=== PATIENT | male | born 1975 ===

== ENCOUNTER 2017-03-31 00:21 | Observation (INO) | payer OTHER ==
[2017-03-31 00:42] LABS: BASO % 0.3 % (0.0-2.0); EOS # 0.1 K/uL (0.0-0.7); EOS % 1.2 % (0.0-4.0); HEMATOCRIT 46.2 % (35.0-51.0); LYMPH # 4.1 K/uL (1.0-4.3); LYMPH % 45.4 % (20.0-40.0); MEAN CELL VOLUME 87.5 fL (80.0-94.0); MEAN CORPUSCULAR HEMOGLOBIN 29.2 pg (27.0-31.0); MEAN CORPUSCULAR HGB CONC 33.4 g/dL (33.0-37.0); MEAN PLATELET VOLUME 8.2 fL (7.2-11.7); MONO # 0.5 K/uL (0.0-0.8); MONO % 5.8 % (0.0-10.0); RED CELL DISTRIBUTION WIDTH 13.6 % (11.5-14.5)
[2017-03-31 00:56] LABS: RBC URINE 1 /hpf (0-3); URINE BILIRUBIN NEGATIVE (NEGATIVE); URINE BLOOD NEGATIVE (NEGATIVE); URINE COLOR Yellow (YELLOW); URINE GLUCOSE (UA) NORMAL (Normal); URINE KETONE NEGATIVE (NEGATIVE); URINE LEUKOCYTE ESTERASE TRACE Leu/uL (Negative); URINE PROTEIN 1+ mg/dL (NEGATIVE); URINE UROBILINOGEN NORMAL mg/dL (0.2-1.0); WBC URINE 3 /hpf (0-5)
[2017-03-31 00:56] LABS: ALB/GLOB RATIO 1.2 (1.0-2.1); ALKALINE PHOSPHATASE 85 U/L (38-126); ALT/SGPT 59 U/L (21-72); AST/SGOT 24 U/L (17-59); BILIRUBIN,TOTAL 0.4 mg/dL (0.2-1.3); BLOOD UREA NITROGEN 10 mg/dL (9-20); CALCIUM 8.6 mg/dl (8.6-10.4); CARBON DIOXIDE 27 mmol/L (22-30); CHLORIDE 103 mmol/L (98-107); GFR AFRICAN-AMERICAN > 60; GLUCOSE,RANDOM 109 mg/dL (75-110); POTASSIUM 3.7 mmol/L (3.6-5.2); SODIUM 140 mmol/L (132-148); TOTAL PROTEIN 7.9 g/dL (6.3-8.3)
--- NOTE | 2017-03-31 01:32 | CT ---
EXAM: CT Head Without Intravenous Contrast EXAM DATE/TIME: 03/31/2017 12:30 AM CLINICAL HISTORY: 41 years old, male; Pain; Other: On set seizure; Additional info: New onset seizure TECHNIQUE: Axial computed tomography images of the head/brain without intravenous contrast. All CT scans at this facility use one or more dose reduction techniques, viz.: automated exposure control; ma/kV adjustment per patient size (including targeted exams where dose is matched to indication; i.e. head); or iterative reconstruction technique. Coronal and sagittal reformatted images were created and reviewed. COMPARISON: There are no prior studies for comparison. FINDINGS: Brain: Ventricles are normal in size and configuration. There is no midline shift. There are no intra-axial or extra-axial mass lesions or areas of hemorrhage. There are no abnormal fluid collections. La-white differentiation is maintained. Ventricles: See above. Bones: Cranial vault is intact. Soft tissues: unremarkable Sinuses: There is no acute sinusitis. Ears and mastoids: Middle ears and mastoids are unremarkable Orbits: Orbital contents are unremarkable. IMPRESSION: No acute intracranial abnormality
--- NOTE | 2017-03-31 02:32 | C.PDOC ---
History Of Present Illness 41 year old male presents to the ER after witnessed patient have a seizure for approximately 3 minutes. Patient states the last thing he remembers for seizing was a sudden sharp pain on the right side of his body. As per , patient was sitting in his chair when he started seizing and his eyes started to roll back. Patient had positive urinary incontinence and when he awoke he was covered in perspiration. Denies Hx of seizures or other complaints at this time. Time Seen by Provider: 03/31/17 00:30 Chief Complaint (Nursing): Seizure History Per: Patient History/Exam Limitations: no limitations Recent Seizure Activity Began: Just Before Arrival Number Of Seizures: One Length Of Seizures (Duration): Minutes (3) Quality Of Seizure: Generalized Precipitating Factor(s): None Associated Symptoms: Incontinence Of Urine Post-ictal Period: No Recent travel outside of the [place]: No Past Medical History Reviewed: Historical Data, Nursing Documentation, Vital Signs Vital Signs: Last Vital Signs Temp 97.7 F 03/31/17 03:59 Pulse 81 03/31/17 03:59 Resp 20 03/31/17 03:59 BP 122/70 03/31/17 03:59 Pulse Ox 99 03/31/17 03:59 - Medical History PMH: No Chronic Diseases Surgical History: No Surg Hx Family History: States: Unknown Family Hx - Social History Hx Alcohol Use: Yes Hx Substance Use: No - Immunization History Hx Tetanus Toxoid Vaccination: No Hx Influenza Vaccination: No Hx Pneumococcal Vaccination: No Review Of Systems Constitutional: Negative for: Fever, Chills Gastrointestinal: Negative for: Nausea, Vomiting Genitourinary: Positive for: Incontinence (urinary) Neurological: Positive for: Seizures. Negative for: Headache Physical Exam - Physical Exam Appears: Non-toxic, No Acute Distress Skin: Normal Color, Warm, Dry Head: Atraumatic, Normacephalic Eye(s): bilateral: Normal Inspection, PERRL, EOMI Oral Mucosa: Moist Tongue: Normal Appearing, No Bite Neck: Normal, No Midline Cervical Tenderness, No Paracervical Tenderness, Supple Chest: Symmetrical, No Tenderness Cardiovascular: Rhythm Regular Respiratory: Normal Breath Sounds, No Rales, No Rhonchi, No Wheezing Gastrointestinal/Abdominal: Soft, No Tenderness Neurological/Psych: Oriented x3, Normal Speech ED Course And Treatment - Laboratory Results Result Diagrams: 03/31/17 00:36 03/31/17 00:36 ECG: Interpreted By Me, Viewed By Me ECG Rhythm: Sinus Rhythm ECG Interpretation: Normal Interpretation Of ECG: norm axis and rhythm Rate From EC O2 Sat by Pulse Oximetry: 100 (room air) Pulse Ox Interpretation: Normal Progress Note: CT head, EKG, blood work, and urinalysis ordered. Discussed with Dr. Sosa who requests to have me speak to neurologist glue bone crusher. Discussed with Dr. Loaiza, neurologist glue bone crusher, who states not to give patient any medication and to admits patient as he need an EEG and further study. Disposition - Disposition Disposition: HOSPITALIZED Disposition Time: 01:30 Condition: STABLE - Clinical Impression Clinical Impression: New onset seizure - Scribe Statement The provider has reviewed the documentation as recorded by the Scribe Varghese Ross All medical record entries made by the Scribe were at my direction and personally dictated by me. I have reviewed the chart and agree that the record accurately reflects my personal performance of the history, physical exam, medical decision making, and the department course for this patient. I have also personally directed, reviewed, and agree with the discharge instructions and disposition.
--- NOTE | 2017-03-31 06:55 | CP.PCM.CON ---
History of Present Illness - History of Present Illness History of Present Illness: consult dictatated NEW ONSET OF Sz NO AED IS NEEDED NOW MRI/EEG IF STABLE X24 HRS CAN BE D/C HME AND FOLLOW UP AN OP Past Patient History - Infectious Disease Hx of Infectious Diseases: None - Past Medical History & Family History Past Medical History?: No - Past Social History Smoking Status: Light Smoker < 10 Cigarettes Daily - PULMONARY Hx Respiratory Disorders: No - NEUROLOGICAL Hx Neurological Disorder: No - HEENT Hx HEENT Problems: No - RENAL Hx Chronic Kidney Disease: No - ENDOCRINE/METABOLIC Hx Endocrine Disorders: No - HEMATOLOGICAL/ONCOLOGICAL Hx Blood Disorders: No - INTEGUMENTARY Hx Dermatological Problems: No - MUSCULOSKELETAL/RHEUMATOLOGICAL Hx Musculoskeletal Disorders: No Hx Falls: No - GASTROINTESTINAL Hx Gastrointestinal Disorders: No - GENITOURINARY/GYNECOLOGICAL Hx Genitourinary Disorders: No - PSYCHIATRIC Hx Substance Use: No - SURGICAL HISTORY Hx Surgeries: No - ANESTHESIA Hx Anesthesia: No Meds Allergies/Adverse Reactions: Allergies Allergy/AdvReac Type Severity Reaction Status Date / Time No Known Allergies Allergy Unverified 03/31/17 00:24 Results - Vital Signs Recent Vital Signs: Last Vital Signs Temp 97.7 F 03/31/17 03:59 Pulse 81 03/31/17 03:59 Resp 20 03/31/17 03:59 BP 122/70 03/31/17 03:59 Pulse Ox 100 03/31/17 06:15 - Labs Result Diagrams: 03/31/17 00:36 03/31/17 00:36 Labs: Laboratory Results - last 24 hr 03/31/17 03/31/17 03/31/17 00:36 00:36 00:50 WBC 9.0 RBC 5.29 Hgb 15.4 Hct 46.2 MCV 87.5 MCH 29.2 MCHC 33.4 RDW 13.6 Plt Count 265 MPV 8.2 Neut % (Auto) 47.3 L Lymph % (Auto) 45.4 H [place] % (Auto) 5.8 Eos % (Auto) 1.2 Baso % (Auto) 0.3 Neut # 4.2 Lymph # 4.1 [place] # 0.5 Eos # 0.1 Baso # 0.0 Sodium 140 Potassium 3.7 Chloride 103 Carbon Dioxide 27 Anion Gap 14 BUN 10 Creatinine 1.0 Est GFR ( Amer) > 60 Est GFR (Non-Af Amer) > 60 Random Glucose 109 Calcium 8.6 Magnesium 2.0 Total Bilirubin 0.4 AST 24 ALT 59 Alkaline Phosphatase 85 Troponin I < 0.0120 Total Protein 7.9 Albumin 4.4 Globulin 3.6 Albumin/Globulin Ratio 1.2 Urine Color Yellow Urine Clarity Clear Urine pH 5.0 Ur Specific [place] 1.013 Urine Protein 1+ H Urine Glucose (UA) Normal Urine Ketones Negative Urine Blood Negative Urine Nitrate Negative Urine Bilirubin Negative Urine Urobilinogen Normal Ur Leukocyte Esterase Trace Urine WBC (Auto) 3 Urine RBC (Auto) 1 Ur Squamous Epith Cells < 1 Urine Opiates Screen Urine Methadone Screen Ur Barbiturates Screen Ur Phencyclidine Scrn Ur Amphetamines Screen U Benzodiazepines Scrn U Oth Cocaine Metabols U Cannabinoids Screen 03/31/17 01:49 WBC RBC Hgb Hct MCV MCH MCHC RDW Plt Count MPV Neut % (Auto) Lymph % (Auto) [place] % (Auto) Eos % (Auto) Baso % (Auto) Neut # Lymph # [place] # Eos # Baso # Sodium Potassium Chloride Carbon Dioxide Anion Gap BUN Creatinine Est GFR ( Amer) Est GFR (Non-Af Amer) Random Glucose Calcium Magnesium Total Bilirubin AST ALT Alkaline Phosphatase Troponin I Total Protein Albumin Globulin Albumin/Globulin Ratio Urine Color Urine Clarity Urine pH Ur Specific [place] Urine Protein Urine Glucose (UA) Urine Ketones Urine Blood Urine Nitrate Urine Bilirubin Urine Urobilinogen Ur Leukocyte Esterase Urine WBC (Auto) Urine RBC (Auto) Ur Squamous Epith Cells Urine Opiates Screen Negative Urine Methadone Screen Negative Ur Barbiturates Screen Negative Ur Phencyclidine Scrn Negative Ur Amphetamines Screen Negative U Benzodiazepines Scrn Negative U Oth Cocaine Metabols Negative U Cannabinoids Screen Negative
[2017-03-31 08:16] LABS: FREE T4 1.16 ng/dL (0.78-2.19)
[2017-03-31 08:30] LABS: THYROID STIMULATING HORMONE 2.65 mIU/L (0.46-4.68)
--- NOTE | 2017-03-31 10:11 | CON ---
DATE: 03/31/2017 NEUROLOGICAL PROBLEM: New onset of seizures. CHIEF COMPLAINT: The patient was brought in to [facility] with history of seizures, been witnessed by his . From a neurologic point of view, I was called in to evaluate him for further management. HISTORY OF PRESENT ILLNESS: Mr. Mariluz Hasknis is a 41-year-old right-handed [place] male, usual state of health. Last night around 11:30 p.m. in the bed, he woke up, he felt tightness and pain allover his right side of the chest, which was radiating to his back. The same symptom he supposed to get up by himself to drink water; however, he felt uneasiness, felt like passing out and tried to woke his . During the process, he fell backwards and witnessed tonic-clonic activities. He was placed on the ground. This episode associated with urinary incontinence as well. The whole episode lasted for about 2 to 3 minutes and he got up himself. No bitten tongue. No similar episodes happened in the past. No post event confusion or weakness noted by his as well as by himself. He denies headache, no visual or bulbar dysfunction. PAST MEDICAL HISTORY: Unremarkable. PERSONAL HISTORY: He smokes less than a pack a day. Occasional alcohol use. No substance abuse. REVIEW OF SYSTEMS: A 12-point systems had been reviewed. From neuro, new onset of seizures. MEDICATIONS: None. PHYSICAL EXAMINATION: VITAL SIGNS: Blood pressure 122/70, mean arterial pressure of 87, respiratory rate 16, temperature afebrile. NECK: Supple. No carotid bruits. HEART: Sounds regular. CHEST: Fair air entry. EXTREMITIES: No edema in leg. NEUROLOGICAL EXAMINATION: Mental status examination, he is awake, alert, oriented to person, place and time. No retrograde or antegrade amnesia. No confusion. No confabulation. Cranial nerve examination: Visual field intact. Pupils reactive to light. Extraocular movement normal. No nystagmus. No facial sensory deficit. No facial asymmetry. Hearing is normal. Tongue is midline. Good gag. Motor examination: On outstretched hand with eyes closed, no drift noted. Power is symmetrical on either side. Deep tendon reflexes biceps, brachialis, triceps 2+, both knees are 3+, both ankles are 1+. Plantars are downgoing. Sensory examination grossly intact. No cortical sensory loss. Coordination: [id number] test is intact. Gait is deferred at this time. WORKUP: CT of the head is reviewed. No acute pathology is noted. Blood workup: WBC 9.0, hemoglobin 15.4, hematocrit 46.2, platelet 265. Sodium 140, potassium 3.7, chloride 103, bicarbonate 27, BUN 10, creatinine 1.0, GFR more than 60, magnesium 2.0, calcium 8.6. Urinalysis shows 1+ proteinuria. Urine tox screen is negative. EKG, normal sinus rhythm. CONCLUSION: Mr. Mariluz Haskins has been presenting with the new onset of generalized tonic-clonic activity, tonic-clonic seizures. Which is unprovoked. There has no triggers been noticed from his history. The examination does not show any long tract sign at present. RECOMMENDATIONS: 1. MRI of the brain as per the seizure protocol, attention at mesial temporal lobe and volumetric analysis of hippocampus. 2. EEG. 3. Blood workup as per the order. 4. The patient should have ambulatory video electroencephalogram, which can be done as outpatient. 5. If cardiac nieves is stable, the patient is stable for next 24-hour period, he can be discharged and he should have followup visit with me as outpatient. 6. Seizure hygiene had been discussed. Proper sleep, no stimulant before going sleep and do not deprive his sleep pattern. The patient's condition has been discussed with his as well. Dariusz Loaiza MD
[2017-03-31] MEDS ORDERED: Gadodiamide 287 MG/ML VIAL (15ML) IV ONE (10:38)
--- NOTE | 2017-03-31 13:23 | MRI ---
PROCEDURE: MRI BRAIN WITH AND WITHOUT CONTRAST HISTORY: Seizure protocol COMPARISON: Comparison made with CT scan brain dated 03/31/2017 TECHNIQUE: Multiplanar, multisequence MR images of the brain were obtained with and without intravenous contrast enhancement. Approximately 13 cc of Omniscan contrast material injected for this procedure. FINDINGS: HEMORRHAGE: No acute parenchymal, subarachnoid or extra-axial hemorrhage. . No evidence of hemosiderin deposition identified on gradient echo weighted sequence. DWI: No evidence of an acute or early subacute infarction seen on diffusion imaging. BRAIN PARENCHYMA: There is a small nonenhancing elliptical shaped focal area of increased T2 signal seen in the left posterior centrum semiovale nonspecific. Findings could be represent a small chronic ischemic focus, sequela of migraine headache, old trauma, post infectious/ inflammatory etiology. The possibility of a demyelinating disease process would be less likely in the absence of a pertinent clinical history. Clinical correlation recommended. No additional focal areas of abnormal signal seen within the substance of the brain. No evidence to suggest mesial temporal sclerosis. No enhancing parenchymal nor extra-axial masses or collections. No evidence of abnormal meningeal enhancement. Ventricular and sulcal size are within range of normal for this patient's stated age. ENHANCEMENT: As above. VENTRICLES: No obstructive hydrocephalus. CRANIUM: There are no gross calvarial abnormalities ORBITS: Ho orbits and contents grossly unremarkable. PARANASAL SINUSES/MASTOIDS: Cl the visualized paranasal sinuses well-developed and currently well-aerated. VASCULAR SYSTEM: Visualized major vascular flow voids at skull base are patent. OTHER FINDINGS: None . IMPRESSION: No evidence of acute intracranial hemorrhage or infarct. There is a small elliptical shaped nonenhancing area of increased T2 signal left posterior centrum semiovale of uncertain etiology. Rule out sequela of old ischemia,, migraine headaches, old trauma or post infectious/ inflammatory etiologies. A demyelinating disease process would be less likely in the absence of a pertinent clinical history however not completely excluded. .
--- NOTE | 2017-03-31 13:50 | CP.PCM.HP ---
History of Present Illness - History of Present Illness History of Present Illness: 41 year old male presents to the ER after witnessed patient have a seizure for approximately 3 minutes. Patient states the last thing he remembers for seizing was a sudden sharp pain on the right side of his body. As per , patient was sitting in his chair when he started seizing and his eyes started to roll back. Patient had positive urinary incontinence and when he awoke he was covered in perspiration. Denies Hx of seizures or other complaints at this time. CT HEAD NEG Present on Admission - Present on Admission Any Indicators Present on Admission: No Review of Systems - Constitutional Constitutional: Fatigue, Headache, Lethargy, Malaise. absent: As Per HPI, Anorexia, Chills, Daytime Sleepiness, Excessive Sweating, Fever, Frequent Falls , Increased Appetite, Night Sweats, Snoring, Sleep Apnea, Weight Gain, Weight Loss, Weakness, Other - EENT Eyes: absent: As Per HPI, Blind Spots, Blurred Vision, Change in Vision, Decreased Night Vision, Diplopia, Discharge, Dry Eye, Exophthalmos, Floaters, Irritation, Itchy Eyes, Loss of Peripheral Vision, Pain, Photophobia, Requires Corrective Lenses, Sees Flashes, Spots in Vision, Tunnel Vision, Other Visual Disturbances, Loss of Vision, Other Ears: absent: As Per HPI, Decreased Hearing, Ear Discharge, Ear Pain, Tinnitus, Abnormal Hearing, Disequilibrium, Dizziness, Other Nose/Mouth/Throat: absent: As Per HPI, Epistaxis, Nasal Congestion, Nasal Discharge, Nasal Obstruction, Nasal Trauma, Nose Pain, Post Nasal Drip, Sinus Pain, Sinus Pressure, Bleeding Gums, Change in Voice, Dental Pain, Dry Mouth, Dysphagia, Halitosis, Hoarsness, Lip Swelling, Mouth Lesions, Mouth Pain, Odynophagia, Sore Throat, Throat Swelling, Tongue Swelling, Facial Pain, Neck Pain, Neck Mass, Other - Cardiovascular Cardiovascular: absent: As Per HPI, Acrocyanosis, Chest Pain, Chest Pain at Rest , Chest Pain with Activity, Claudication, Diaphoresis, Dyspnea, Dyspnea on Exertion, Edema, Irregular Heart Rhythm, Pain Radiating to Arm/Neck/Jaw, Leg Edema, Leg Ulcers, Lightheadedness, Orthopnea, Palpitations, Paroxysmal Nocturnal Dyspnea, Pedal Edema, Radiating Pain, Rapid Heart Rate, Slow Heart Rate, Syncope, Other - Respiratory Respiratory: absent: As Per HPI, Cough, Dyspnea, Hemoptysis, Dyspnea on Exertion , Wheezing, Snoring, Stridor, Pain on Inspiration, Chest Congestion, Excessive Mucous Production, Change in Mucous Color, Pain with Coughing, Other - Gastrointestinal Gastrointestinal: absent: As Per HPI, Abdominal Pain, Belching, Bloating, Change in Bowel Habits, Change in Stool Character, Coffee Ground Emesis, Constipation, Cramping, Diarrhea, Dyspepsia, Dysphagia, Early Satiety, Excessive Flatus, Fecal Incontinence, Heartburn, Hematemesis, Hematochezia, Loose Stools, Melena, Nausea, Odynophagia, Temesmus, Vomiting, Other - Genitourinary Genitourinary: absent: As Per HPI, Change in Urinary Stream, Difficulty Urinating, Dysuria, Flank Pain, Hematuria, Pyuria, Nocturia, Urinary Incontinence, Urinary Frequency, Urinary Hesitance, Urinary Urgency, Voiding Freq/Small Amts, Freq UTI, Hx Renal/Bladder Calculi, Hx /Renal Surgery, Bladder Distension, Other - Musculoskeletal Musculoskeletal: Back Pain, Muscle Cramps, Muscle Weakness, Myalgias. absent: As Per HPI, Abnormal Gait, Arthralgias, Atrophy, Deformity, Joint Swelling, Limited Range of Motion, Loss of Height, Neck Pain, Numbness, Radiating Pain into Limb, Stiffness, Tingling, Other - Integumentary Integumentary: absent: As Per HPI, Acne, Alopecia, Bleeding Lesions, Change in Hair, Change in Nails, Change in Pigmentation, Changing Lesions, Dry Skin, Erythema, Furuncle, Hirsutism, Lesions, New Lesions, Non-Healing Lesions, Photosensitivity, Pruritus, Rash, Skin Pain, Skin Ulcer, Sores, Striae, Swelling , Unusual Bruising, Wounds, Jaundice, Other - Neurological Neurological: Convulsions, Dizziness, Syncope, Tingling. absent: As Per HPI, Abnormal Gait, Abnormal Hearing, Abnormal Movements, Abnormal Speech, Behavioral Changes, Burning Sensations, Confusion, Disequilibrium, Numbness, Focal Weakness, Frequent Falls, Headaches, Lack of Coordination, Loss of Vision , Memory Loss, Paresthesias, Radicular Pain, Restless Legs, Sensory Deficit, Tremor, Vertigo, Weakness, Other Visual Disturbances, Other - Psychiatric Psychiatric: absent: As Per HPI, Abnormal Sleep Pattern, Anhedonia, Anxiety, Auditory Hallucinations, Behavioral Changes, Change in Appetite, Change in Libido, Confusion, Depression, Difficulty Concentrating, Hallucinations, Homicidal Ideation, Hopelessness, Irritability, Memory Loss, Mood Swings, Panic Attacks, Paranoia, Suicidal Ideation, Visual Hallucinations, Tactile Hallucinations, Other - Endocrine Endocrine: absent: As Per HPI, Change in Body Appearance, Change in Libido, Cold Intolorance, Deepening of Voice, Excessive Sweating, Fatigue, Flushing, Heat Intolorance, Increase in Ring/Shoe/Hat Size, Palpitations, Polydipsia, Polyphagia, Polyuria, Other - Hematologic/Lymphatic Hematologic: absent: As Per HPI, Easy Bleeding, Easy Bruising, Lymphadenopathy, Other Past Patient History - Infectious Disease Hx of Infectious Diseases: None - Past Medical History & Family History Past Medical History?: No - Past Social History Smoking Status: Light Smoker < 10 Cigarettes Daily - PULMONARY Hx Respiratory Disorders: No - NEUROLOGICAL Hx Neurological Disorder: No - HEENT Hx HEENT Problems: No - RENAL Hx Chronic Kidney Disease: No - ENDOCRINE/METABOLIC Hx Endocrine Disorders: No - HEMATOLOGICAL/ONCOLOGICAL Hx Blood Disorders: No - INTEGUMENTARY Hx Dermatological Problems: No - MUSCULOSKELETAL/RHEUMATOLOGICAL Hx Musculoskeletal Disorders: No Hx Falls: No - GASTROINTESTINAL Hx Gastrointestinal Disorders: No - GENITOURINARY/GYNECOLOGICAL Hx Genitourinary Disorders: No - PSYCHIATRIC Hx Substance Use: No - SURGICAL HISTORY Hx Surgeries: No - ANESTHESIA Hx Anesthesia: No Meds Allergies/Adverse Reactions: Allergies Allergy/AdvReac Type Severity Reaction Status Date / Time No Known Allergies Allergy Unverified 03/31/17 00:24 Physical Exam - Head Exam Head Exam: ATRAUMATIC - Eye Exam Eye Exam: EOMI, Normal appearance, PERRL - ENT Exam ENT Exam: Mucous Membranes Moist, Normal Exam - Neck Exam Neck exam: Positive for: Normal Inspection - Respiratory Exam Respiratory Exam: Clear to Auscultation Bilateral, NORMAL BREATHING PATTERN - Cardiovascular Exam Cardiovascular Exam: REGULAR RHYTHM, +S1, +S2 - GI/Abdominal Exam GI & Abdominal Exam: Normal Bowel Sounds, Soft. absent: Tenderness - Neurological Exam Neurological exam: Alert, CN II-XII Intact, Normal Gait, Oriented x3, Reflexes Normal - Psychiatric Exam Psychiatric exam: Normal Affect, Normal Mood Results - Vital Signs Recent Vital Signs: Last Vital Signs Temp 98.0 F 03/31/17 08:02 Pulse 70 03/31/17 08:02 Resp 20 03/31/17 08:02 BP 112/74 03/31/17 08:02 Pulse Ox 100 03/31/17 08:02 - Labs Result Diagrams: 03/31/17 00:36 03/31/17 00:36 Labs: Laboratory Results - last 24 hr 03/31/17 03/31/17 03/31/17 00:24 00:36 00:36 WBC 9.0 RBC 5.29 Hgb 15.4 Hct 46.2 MCV 87.5 MCH 29.2 MCHC 33.4 RDW 13.6 Plt Count 265 MPV 8.2 Neut % (Auto) 47.3 L Lymph % (Auto) 45.4 H [place] % (Auto) 5.8 Eos % (Auto) 1.2 Baso % (Auto) 0.3 Neut # 4.2 Lymph # 4.1 [place] # 0.5 Eos # 0.1 Baso # 0.0 Sodium 140 Potassium 3.7 Chloride 103 Carbon Dioxide 27 Anion Gap 14 BUN 10 Creatinine 1.0 Est GFR ( Amer) > 60 Est GFR (Non-Af Amer) > 60 POC Glucose (mg/dL) 97 Random Glucose 109 Calcium 8.6 Magnesium 2.0 Total Bilirubin 0.4 AST 24 ALT 59 Alkaline Phosphatase 85 Troponin I < 0.0120 Total Protein 7.9 Albumin 4.4 Globulin 3.6 Albumin/Globulin Ratio 1.2 Free T4 TSH 3rd Generation Prolactin Urine Color Urine Clarity Urine pH Ur Specific [place] Urine Protein Urine Glucose (UA) Urine Ketones Urine Blood Urine Nitrate Urine Bilirubin Urine Urobilinogen Ur Leukocyte Esterase Urine WBC (Auto) Urine RBC (Auto) Ur Squamous Epith Cells Urine Opiates Screen Urine Methadone Screen Ur Barbiturates Screen Ur Phencyclidine Scrn Ur Amphetamines Screen U Benzodiazepines Scrn U Oth Cocaine Metabols U Cannabinoids Screen 03/31/17 03/31/17 03/31/17 00:50 01:49 07:18 WBC RBC Hgb Hct MCV MCH MCHC RDW Plt Count MPV Neut % (Auto) Lymph % (Auto) [place] % (Auto) Eos % (Auto) Baso % (Auto) Neut # Lymph # [place] # Eos # Baso # Sodium Potassium Chloride Carbon Dioxide Anion Gap BUN Creatinine Est GFR ( Amer) Est GFR (Non-Af Amer) POC Glucose (mg/dL) Random Glucose Calcium Magnesium Total Bilirubin AST ALT Alkaline Phosphatase Troponin I Total Protein Albumin Globulin Albumin/Globulin Ratio Free T4 1.16 TSH 3rd Generation 2.65 Prolactin Urine Color Yellow Urine Clarity Clear Urine pH 5.0 Ur Specific [place] 1.013 Urine Protein 1+ H Urine Glucose (UA) Normal Urine Ketones Negative Urine Blood Negative Urine Nitrate Negative Urine Bilirubin Negative Urine Urobilinogen Normal Ur Leukocyte Esterase Trace Urine WBC (Auto) 3 Urine RBC (Auto) 1 Ur Squamous Epith Cells < 1 Urine Opiates Screen Negative Urine Methadone Screen Negative Ur Barbiturates Screen Negative Ur Phencyclidine Scrn Negative Ur Amphetamines Screen Negative U Benzodiazepines Scrn Negative U Oth Cocaine Metabols Negative U Cannabinoids Screen Negative 03/31/17 07:18 WBC RBC Hgb Hct MCV MCH MCHC RDW Plt Count MPV Neut % (Auto) Lymph % (Auto) [place] % (Auto) Eos % (Auto) Baso % (Auto) Neut # Lymph # [place] # Eos # Baso # Sodium Potassium Chloride Carbon Dioxide Anion Gap BUN Creatinine Est GFR ( Amer) Est GFR (Non-Af Amer) POC Glucose (mg/dL) Random Glucose Calcium Magnesium Total Bilirubin AST ALT Alkaline Phosphatase Troponin I Total Protein Albumin Globulin Albumin/Globulin Ratio Free T4 TSH 3rd Generation Prolactin 31.7 H Urine Color Urine Clarity Urine pH Ur Specific [place] Urine Protein Urine Glucose (UA) Urine Ketones Urine Blood Urine Nitrate Urine Bilirubin Urine Urobilinogen Ur Leukocyte Esterase Urine WBC (Auto) Urine RBC (Auto) Ur Squamous Epith Cells Urine Opiates Screen Urine Methadone Screen Ur Barbiturates Screen Ur Phencyclidine Scrn Ur Amphetamines Screen U Benzodiazepines Scrn U Oth Cocaine Metabols U Cannabinoids Screen Assessment & Plan (1) New onset seizure Status: Acute Comment: PRELIMINARY NEURO W/U. MEDS PER NEUROLOGY
[2017-04-01 01:13] VITALS: RESP 20
--- NOTE | 2017-04-01 12:16 | PN ---
DATE: 04/01/2017 NEUROLOGICAL PROBLEM: New onset of seizure. PHYSICAL EXAMINATION: VITAL SIGNS: Blood pressure 103/64, mean arterial pressure of 77, respiratory rate 20, and temperature 98.1. NEUROLOGICAL : The patient is arousable on calling his first name. Cranial nerve examination is normal. Motor examination is unchanged. Deep tendon reflexes are equal on either side. Plantars are downgoing. The patient slept good. No active symptoms at present. WORKUP: MRI of the brain showed some T2 signal over the left external capsular region, probably a remote ischemic process; however, this ischemic process, whatever it is, is not the cause for his seizures. His seizure is probably secondary to sleep deprivation. His EEG is also reviewed by me and does not show any acute paroxysmal activities or focal slowing noted. RECOMMENDATIONS: 1. No antiepileptic drug is needed. 2. Scheduled him to see me as outpatient for ambulatory electroencephalogram. 3. Cardiology clearance before his discharge. 4. DMV recommendation for his seizure has been discussed. The patient is aware of his problem. The patient will be followed by me as outpatient. Dariusz Loaiza MD
--- NOTE | 2017-04-01 12:16 | CARD ---
APPROVED REPORT EKG Measurement Heart [id number] <Conclusion> Normal sinus rhythm Normal ECG
--- NOTE | 2017-04-01 14:07 | CP.PCM.DIS ---
Provider - Provider Date of Admission: 03/31/17 03:09 Attending physician: Trey Sosa MD Primary care physician: Non [facility] Provider Time Spent in preparation of Discharge (in minutes): 35 Diagnosis - Discharge Diagnosis (1) New onset seizure Status: Acute Hospital Course - Lab Results Lab Results: Most Recent Lab Values WBC 9.0 K/uL (4.8-10.8) 03/31/17 00:36 RBC 5.29 Mil/uL (4.40-5.90) 03/31/17 00:36 Hgb 15.4 g/dL (12.0-18.0) 03/31/17 00:36 Hct 46.2 % (35.0-51.0) 03/31/17 00:36 MCV 87.5 fL (80.0-94.0) 03/31/17 00:36 MCH 29.2 pg (27.0-31.0) 03/31/17 00:36 MCHC 33.4 g/dL (33.0-37.0) 03/31/17 00:36 RDW 13.6 % (11.5-14.5) 03/31/17 00:36 Plt Count 265 K/uL (130-400) 03/31/17 00:36 MPV 8.2 fL (7.2-11.7) 03/31/17 00:36 Neut % (Auto) 47.3 % (50.0-75.0) L 03/31/17 00:36 Lymph % (Auto) 45.4 % (20.0-40.0) H 03/31/17 00:36 [place] % (Auto) 5.8 % (0.0-10.0) 03/31/17 00:36 Eos % (Auto) 1.2 % (0.0-4.0) 03/31/17 00:36 Baso % (Auto) 0.3 % (0.0-2.0) 03/31/17 00:36 Neut # 4.2 K/uL (1.8-7.0) 03/31/17 00:36 Lymph # 4.1 K/uL (1.0-4.3) 03/31/17 00:36 [place] # 0.5 K/uL (0.0-0.8) 03/31/17 00:36 Eos # 0.1 K/uL (0.0-0.7) 03/31/17 00:36 Baso # 0.0 K/uL (0.0-0.2) 03/31/17 00:36 Sodium 140 mmol/L (132-148) 03/31/17 00:36 Potassium 3.7 mmol/L (3.6-5.2) 03/31/17 00:36 Chloride 103 mmol/L (98-107) 03/31/17 00:36 Carbon Dioxide 27 mmol/L (22-30) 03/31/17 00:36 Anion Gap 14 (10-20) 03/31/17 00:36 BUN 10 mg/dL (9-20) 03/31/17 00:36 Creatinine 1.0 mg/dL (0.8-1.5) 03/31/17 00:36 Est GFR ( Amer) > 60 03/31/17 00:36 Est GFR (Non-Af Amer) > 60 03/31/17 00:36 POC Glucose (mg/dL) 97 mg/dL (65-110) 03/31/17 00:24 Random Glucose 109 mg/dL (75-110) 03/31/17 00:36 Calcium 8.6 mg/dl (8.6-10.4) 03/31/17 00:36 Magnesium 2.0 mg/dL (1.6-2.3) 03/31/17 00:36 Total Bilirubin 0.4 mg/dL (0.2-1.3) 03/31/17 00:36 AST 24 U/L (17-59) 03/31/17 00:36 ALT 59 U/L (21-72) 03/31/17 00:36 Alkaline Phosphatase 85 U/L (38-126) 03/31/17 00:36 Troponin I < 0.0120 ng/mL (0.00-0.120) 03/31/17 00:36 Total Protein 7.9 g/dL (6.3-8.3) 03/31/17 00:36 Albumin 4.4 g/dL (3.5-5.0) 03/31/17 00:36 Globulin 3.6 gm/dL (2.2-3.9) 03/31/17 00:36 Albumin/Globulin Ratio 1.2 (1.0-2.1) 03/31/17 00:36 Free T4 1.16 ng/dL (0.78-2.19) 03/31/17 07:18 TSH 3rd Generation 2.65 mIU/L (0.46-4.68) 03/31/17 07:18 Prolactin 31.7 ng/mL (3.7-17.9) H 03/31/17 07:18 Urine Color Yellow (YELLOW) 03/31/17 00:50 Urine Clarity Clear (Clear) 03/31/17 00:50 Urine pH 5.0 (5.0-8.0) 03/31/17 00:50 Ur Specific [place] 1.013 (1.003-1.030) 03/31/17 00:50 Urine Protein 1+ mg/dL (NEGATIVE) H 03/31/17 00:50 Urine Glucose (UA) Normal mg/dL (Normal) 03/31/17 00:50 Urine Ketones Negative mg/dL (NEGATIVE) 03/31/17 00:50 Urine Blood Negative (NEGATIVE) 03/31/17 00:50 Urine Nitrate Negative (NEGATIVE) 03/31/17 00:50 Urine Bilirubin Negative (NEGATIVE) 03/31/17 00:50 Urine Urobilinogen Normal mg/dL (0.2-1.0) 03/31/17 00:50 Ur Leukocyte Esterase Trace [place]/uL (Negative) 03/31/17 00:50 Urine WBC (Auto) 3 /hpf (0-5) 03/31/17 00:50 Urine RBC (Auto) 1 /hpf (0-3) 03/31/17 00:50 Ur Squamous Epith Cells < 1 /hpf (0-5) 03/31/17 00:50 Urine Opiates Screen Negative (NEGATIVE) 03/31/17 01:49 Urine Methadone Screen Negative (NEGATIVE) 03/31/17 01:49 Ur Barbiturates Screen Negative (NEGATIVE) 03/31/17 01:49 Ur Phencyclidine Scrn Negative (NEGATIVE) 03/31/17 01:49 Ur Amphetamines Screen Negative (NEGATIVE) 03/31/17 01:49 U Benzodiazepines Scrn Negative (NEGATIVE) 03/31/17 01:49 U Oth Cocaine Metabols Negative (NEGATIVE) 03/31/17 01:49 U Cannabinoids Screen Negative (NEGATIVE) 03/31/17 01:49 RPR Nonreactive (NONREACTIVE) 03/31/17 07:18 - Hospital Course Hospital Course: 41 year old male presents to the ER after witnessed patient have a seizure for approximately 3 minutes. Patient states the last thing he remembers for seizing was a sudden sharp pain on the right side of his body. As per , patient was sitting in his chair when he started seizing and his eyes started to roll back. Patient had positive urinary incontinence and when he awoke he was covered in perspiration. Denies Hx of seizures or other complaints at this time. CT HEAD NEG ALL NEURO W/U, EEG/MRI NEG PER NEURO, NO MEDS WILL GET OUT PT CARDIAC W/U TRSK OF CVD IS V LOW Discharge Exam - Head Exam Head Exam: ATRAUMATIC Discharge Plan - Follow Up Plan Condition: STABLE Disposition: HOME/ ROUTINE Referrals: Non [facility] Provider, [Primary Care Provider] -
[2017-04-01 16:40] VITALS: BP 117/74; TEMP 98; O2SAT 100
[2017-04-01 20:25] VITALS: PULSE 78
--- NOTE | 2017-04-02 00:30 | EEG ---
DATE: This is a 16-channel electroencephalogram of an awake and drowsy adult. During the study, photic stimulation was performed. Hyperventilation was not performed. The resting electroencephalogram consists of 20 to 30 microvolts, 9 to 11 Hz alpha activity seen at parietal and occipital leads. Theta activity is symmetrically attenuated with eye opening. Some movement artifact contaminated the rhythm intermittently. The photic stimulation did not evoke driving response noted at 2 to 20 Hz. IMPRESSION: This is a normal electroencephalogram of awake and drowsy adult. During the study, neither electroencephalographic paroxysmal activities nor focal slowing noted. Dariusz Loaiza MD
== END 2017-04-01 18:01 | disposition home or self-care (01) ==
LOC: C.ER 00:21 → SUPCPDRO 00:21 → C.6T 03:09
PROVIDERS: ADMIT Internal Medicine Cardiovascular Disease; ATTEND Internal Medicine Cardiovascular Disease
DX: G40.89 Other seizures (principal); R32 Unspecified urinary incontinence; F17.210 Nicotine dependence, cigarettes, uncomplicated
CPT/HCPCS: 70450; 70553; 80053; 80324; 80345; 80346; 80349; 80353; 80358; 80361; 81001; 82948; 83735; 83992; 84146; 84439; 84443; 84484; 85025; 86592; 87086; 87536; 93005; 95812; 99285; G0378